=== PATIENT | male | born 2000 | race Caucasian/White ===

== ENCOUNTER 2020-10-09 04:38 | Emergency (ER) | payer OTHER ==
[~2020-10-09] VITALS: Ht 195.6 cm; Wt 95.3 kg
[2020-10-09 05:19] LABS: URINE BILIRUBIN NEGATIVE (Negative); URINE BLOOD NEGATIVE (Negative); URINE CLARITY CLEAR; URINE COLOR YELLOW; URINE GLUCOSE-RANDOM NEGATIVE (Negative); URINE KETONES NEGATIVE (Negative); URINE LEUKOCYTES NEGATIVE (Negative); URINE NITRITE NEGATIVE (Negative); URINE PROTEIN 2+ (Negative); URINE UROBILINOGEN 0.2 E.U./dl (0.2-1.0)
[2020-10-09] MEDS ORDERED: ANTI-DEPRESSANT (05:24)
[2020-10-09] MEDS ORDERED: VISTARIL50 MG PO (05:25)
[2020-10-09 05:26] LABS: AMP/METHAMP Negative (Negative); BARBITURATES Negative (Negative); BENZODIAZEPINES Negative (Negative); COCAINE Negative (Negative); METHADONE Negative (Negative); OPIATES Negative (Negative); PCP Negative (Negative); THC POSITIVE (Negative)
[2020-10-09 05:46] LABS: CALCIUM 9.1 mg/dL (8.5-10.1); CREATININE 0.9 mg/dL (0.6-1.3); HEMATOCRIT 51.3 % (42.0-52.0); MCH 30.9 pg (26.0-34.0); MCHC 35.1 g/dL (28.0-37.0); MCV 87.9 fL (80.0-100.0); RBC 5.84 mil/uL (4.50-6.00); RDW-CV 12.8 % (10.5-14.5)
[2020-10-09 05:51] LABS: ALBUMIN 5.3 g/dL (3.4-5.0); TOTAL BILIRUBIN 0.4 mg/dL (<0.1-1.0)
[2020-10-09 06:24] LABS: ACETAMINOPHEN < 2 ug/mL (10-30); ALCOHOL 104 mg/dL (<10); SALICYLATE 3.8 mg/dL (2.8-20.0)
[2020-10-09 18:57] VITALS: BP 142/68
== END 2020-10-09 18:50 ==
LOC: M.ERS 04:38
PROVIDERS: Personal Emergency Response Attendant
DX: R45.851 Suicidal ideations (principal); Z20.822 Contact with and (suspected) exposure to COVID-19; F29 Unspecified psychosis not due to a substance or known physiological condition; R45.850 Homicidal ideations; F32.9 Major depressive disorder, single episode, unspecified; Z77.22 Contact with and (suspected) exposure to environmental tobacco smoke (acute) (chronic); Z79.899 Other long term (current) drug therapy